=== PATIENT | male | born 1940 | race Caucasian/White ===

== ENCOUNTER 2017-11-03 06:25 | Day surgery (SDC) | payer MEDICARE, OTHER ==
[~2017-11-03 06:25] MED LIST: Dextrose 5%-0.45% NaCl 1,000 ML IV SCH; Midazolam 1 MG/ML 2 ML SDV ONE; Sodium Chloride 0.9% 10 ML Syringe FLUSH PRN; fentaNYL 100 MCG/2 ML SDV ONE
[2017-11-03] MEDS ORDERED: fentaNYL 100 MCG/2 ML SDV IV ONE ×2 (07:31→07:32)
[2017-11-03] MEDS ORDERED: Midazolam 1 MG/ML 2 ML SDV IV ONE ×3 (07:32→07:33)
[2017-11-03 10:08] VITALS: BP 137/60
--- NOTE | 2017-11-03 13:57 | OR ---
DATE: 11/03/2017 PROCEDURE: Esophagogastroduodenoscopy and multiple pinch biopsies. INSTRUMENT USED: GIF-Q180 Olympus video panendoscope. PREMEDICATIONS: No oral topical anesthesia used. Fentanyl 100 mcg intravenous, Versed 1.5 mg intravenous. Nasal O2 cannula. The procedure was done under pulse oximetry, BP recording, and itinerant teacher assistant. INDICATION: The patient with persistent heartburn, unexplained, and not responsive to medical measures, on PPI. Esophagogastroduodenoscopy is performed for detection of any active erosive lesions, Longo esophagus and/or malignancy also under consideration, H. pylori status to be determined, endoscopic hemostasis therapy if needed. DESCRIPTION OF PROCEDURE: The scope was passed with ease. Adequate visualization of the esophagus was made from proximal to distal areas. No upper esophageal lesions identified. No distal esophageal stricture. No uphill or downhill esophageal varices. No Shiela-Melchor tear. No evidence of erosive esophagitis by [place] criteria. No esophageal polyp or tumor mass identified. Z-line seen at around 40 cm distal to the oral verge, configuration consistent with grade 1 by ZAP classification. No proximal gastric varices noted. Gastric fundus examination by retroflexion showed no polypoid lesions. No gastric ulcer, malignant mass, or vascular ectasia identified. Duodenal bulb showed no ulcer. Visualized second part of the duodenum was unremarkable. Multiple pinch biopsies were taken from the gastric antrum and proximal body and sent for PyloriTek test for H. pylori, and if negative in an hour, the tissue is to be sent for histopathology. No bleeding was noted from any of the visualized areas at the completion of examination. Photographs were taken of the duodenal bulb, gastric antrum, fundus, and distal esophagus. IMPRESSION: Normal study. The patient tolerated the procedure well. [facility] /[id number]
== END 2017-11-03 09:32 | disposition home or self-care (01) ==
LOC: DL.ENDO 06:25
PROVIDERS: ATTEND Internal Medicine Gastroenterology
DX: R12 Heartburn (principal); K31.9 Disease of stomach and duodenum, unspecified; K31.89 Other diseases of stomach and duodenum; E11.9 Type 2 diabetes mellitus without complications; E66.09 Other obesity due to excess calories; I10 Essential (primary) hypertension; J44.9 Chronic obstructive pulmonary disease, unspecified; G47.33 Obstructive sleep apnea (adult) (pediatric); I25.10 Atherosclerotic heart disease of native coronary artery without angina pectoris; E78.5 Hyperlipidemia, unspecified; I27.20 Pulmonary hypertension, unspecified; Z87.891 Personal history of nicotine dependence; Z79.82 Long term (current) use of aspirin; Z88.5 Allergy status to narcotic agent; Z91.048 Other nonmedicinal substance allergy status
CPT/HCPCS: 43239; 87077; J7042; J2250; J3010

== ENCOUNTER → 2018-11-20 | Outpatient (CLI) | payer MEDICARE, OTHER | LOC: DL.US 10:44 | PROVIDERS: ATTEND Physician Assistant Medical | DX: I08.3 Combined rheumatic disorders of mitral, aortic and tricuspid valves (principal); I25.10 Atherosclerotic heart disease of native coronary artery without angina pectoris | CPT/HCPCS: 93306 ==

== ENCOUNTER 2019-12-18 13:45 | Emergency (ER) | payer MEDICARE, OTHER ==
[2019-12-18] MEDS ORDERED: Adenosine 6 MG/2 ML SDV IVPUSH ONE (13:55)
[2019-12-18 13:57] VITALS: BP 76/47; PULSE 166
--- NOTE | 2019-12-18 14:08 | CR ---
PROCEDURE INFORMATION: Exam: XR Chest, 1 View Exam date and time: 12/18/2019 2:02 PM Age: 79 years old Clinical indication: Chest pain TECHNIQUE: Imaging protocol: XR of the chest Views: 1 view. COMPARISON: CT Chest wo Cont 04/16/2016 6:27 PM FINDINGS: Lungs: The lungs are hyperinflated, consistent with underlying small airways disease. Nonspecific bibasilar consolidation is present, consistent with atelectasis, edema, or pneumonia. livestock commission agent overlies the left lung apex. Pleural space: Trace bilateral pleural effusions. There is no evidence of pneumothorax. Heart/Mediastinum: Unremarkable. No cardiomegaly. Bones/joints: The thoracic spine demonstrates mild degenerative changes at multiple levels. Soft tissues: The vasculature demonstrates diffuse mild atherosclerotic calcification. IMPRESSION: 1. The lungs are hyperinflated, consistent with underlying small airways disease. 2. Nonspecific bibasilar consolidation is present, consistent with atelectasis, edema, or pneumonia. 3. Trace bilateral pleural effusions.
[2019-12-18 14:42] LABS: CHLORIDE,CL 99 mmol/L (98-107); SODIUM,NA 140 mmol/L (136-145)
--- NOTE | 2019-12-18 15:57 | EDM.PDOC ---
Scribed by Katie Holloway 12/18/19 1530 for Ángel Faulkner NP ED HPI GENERAL MEDICAL PROBLEM - General Chief Complaint: Cardiovascular Problem Stated Complaint: AMB/CHEST PAIN Time Seen by Provider: 12/18/19 13:50 Source of Information: Reports: Patient, EMS, EMS Notes Reviewed, RN, RN Notes Reviewed History Limitations: Reports: No Limitations - History of Present Illness INITIAL COMMENTS - FREE TEXT/NARRATIVE: Patient arrives to ER by [facility] with a history of COPD chronic renal insufficiency, diabetes type II, hypertension, carotid stenosis, hyperlipidemia, CAD and inguinal hernia. He presents to the ER with complaints of chest pain. Patient reports he was painting at home, when chest pain began with radiating down the left arm. It was excruciating as an 8/10 but relieved to a 4/10 after 4 baby aspirin. He denies history of an MO. He reports mild shortness of breath. Onset: Today Duration: Constant Location: Reports: Chest Quality: Reports: Ache Severity: Severe Improves with: Reports: None Worsens with: Reports: None Associated Symptoms: Reports: No Other Symptoms Chest Pain Score (Numeric/FACES): 7 - Related Data Allergies Allergy/AdvReac Type Severity Reaction Status Date / Time iodine Allergy Hives Verified 12/18/19 14:21 morphine Allergy Hives Verified 12/18/19 14:21 iv dye Allergy Hives Uncoded 01/21/19 07:40 Home Meds: Home Meds Acetaminophen [Pain & Fever] 325 mg PO ASDIRECTED PRN 07/20/13 [History] Albuterol [Ventolin HFA] 1 - 2 puff INH Q4H PRN 07/20/13 [History] Aspirin [Adult Low Dose Aspirin EC] 81 mg PO DAILY 07/20/13 [History] Furosemide [Lasix] 20 mg PO DAILY 07/20/13 [History] Nitroglycerin [Nitrostat] 0.4 mg SL ASDIRECTED PRN 07/20/13 [History] Potassium Chloride 10 meq PO DAILY 07/20/13 [History] Simvastatin [Zocor] 20 mg PO BEDTIME 07/20/13 [History] Tiotropium [Spiriva] 18 mcg INH DAILY 07/20/13 [History] hydroCHLOROthiazide [Hydrochlorothiazide] 25 mg PO DAILY 07/20/13 [History] lisinopriL [Prinivil] 40 mg PO DAILY 07/20/13 [History] metFORMIN HCl [Glucophage] 500 mg PO PCBED 07/20/13 [History] Budesonide [Pulmicort] 0.5 mg NEB BID 10/28/16 [History] Formoterol [Perforomist] 20 mcg NEB BID 10/28/16 [History] Metoprolol Succinate [Toprol XL] 100 mg PO DAILY 10/28/16 [History] Roflumilast [Daliresp] 500 mcg PO ASDIRECTED PRN 10/28/16 [History] Clopidogrel Bisulfate [Clopidogrel] 75 mg PO DAILY 10/29/16 [History] amLODIPine Besylate [Amlodipine Besylate] 5 mg PO DAILY 01/19/19 [History] Past Medical History HEENT History: Reports: Allergic Rhinitis, Impaired Vision, Other (See Below) Other HEENT History: WEARS CORRECTIVE LENS. HEARING AIDES BILAT. WEARS UPPER PARTIAL Cardiovascular History: Reports: CAD, High Cholesterol, Hypertension, Pulmonary Hypertension, Other (See Below) Other Cardiovascular History: Moderate aortic insufficiency. Mild to moderate mitral regurgitation. Hx of carotid stenosis Respiratory History: Reports: COPD, Pneumonia, Recurrent, Sleep Apnea, SOB, Other (See Below) Other Respiratory History: Pulmonary hypertension. Sleep related hypoxia Gastrointestinal History: Reports: GERD Genitourinary History: Reports: Prostate Disorder Musculoskeletal History: Reports: Osteoarthritis, Other (See Below) Other Musculoskeletal History: spondylosis of lumbosacral region without myelopathy or radiculopathy. Neurological History: Reports: None Psychiatric History: Reports: None Endocrine/Metabolic History: Reports: Diabetes, Type II, Obesity/BMI 30+ Hematologic History: Reports: None Immunologic History: Reports: None Oncologic (Cancer) History: Reports: Prostate, Other (See Below) Other Oncologic History: skin cancer Dermatologic History: Reports: Eczema, Other (See Below) Other Dermatologic History: actinic keratosis - Infectious Disease History Infectious Disease History: Reports: Chicken Pox, Measles, Mumps Other Infectious Disease History: PATIENT DOES NOT RECALL INFECTIOUS DISEASE HX - Past Surgical History Head Surgeries/Procedures: Reports: None HEENT Surgical History: Reports: Cataract Surgery, Oral Surgery, Tonsillectomy, Other (See Below) Other HEENT Surgeries/Procedures: Ectropion repair bilaterally Cardiovascular Surgical History: Reports: AAA Repair, Carotid Stents, Coronary Artery Stent Respiratory Surgical History: Reports: None GI Surgical History: Reports: Hernia, Inguinal Male Surgical History: Reports: Prostatectomy Endocrine Surgical History: Reports: None Neurological Surgical History: Reports: None Musculoskeletal Surgical History: Reports: Arthroscopic Knee Other Musculoskeletal Surgeries/Procedures:: RIGHT ARTHROSCOPIC KNEE Oncologic Surgical History: Reports: None Dermatological Surgical History: Reports: Skin Biopsy - History Comment History Comment: Please see attached record from [facility] from 04-15-16. Social & Family History - Family History Family Medical History: Noncontributory - Caffeine Use Caffeine Use: Reports: Coffee Other Caffeine Use: AVERAGE OF 2-3 8OZ CUPS OF COFFEE DAILY ED ROS GENERAL - Review of Systems Review Of Systems: See Below Constitutional: Reports: Diaphoresis HEENT: Reports: No Symptoms Respiratory: Reports: Shortness of Breath Cardiovascular: Reports: Chest Pain Endocrine: Reports: No Symptoms GI/Abdominal: Reports: Distension, Other (abdominal hernia) : Reports: No Symptoms Musculoskeletal: Reports: No Symptoms Skin: Reports: No Symptoms Neurological: Reports: No Symptoms Psychiatric: Reports: Anxiety Hematologic/Lymphatic: Reports: No Symptoms Immunologic: Reports: No Symptoms ED EXAM, GENERAL - Physical Exam Exam: See Below Exam Limited By: No Limitations General Appearance: Alert, Anxious, Moderate Distress Eye Exam: Bilateral Eye: PERRL Ears: Normal External Exam, Normal Canal, Hearing Grossly Normal, Normal TMs Nose: Normal Inspection, Normal Mucosa, No Blood Throat/Mouth: Normal Inspection, Normal Lips, Normal Teeth, Normal Gums, Normal Oropharynx, Normal Voice, No Airway Compromise Head: Atraumatic, Normocephalic Neck: Normal Inspection, Supple, Non-Tender, Full Range of Motion Respiratory/Chest: Decreased Breath Sounds (bilaterally). No: Crackles, Rales, Rhonchi, Wheezing Cardiovascular: Tachycardia (regular) Peripheral Pulses: 3+: Posterior Tibial (L), Posterior Tibial (R), Dorsalis Pedis (L), Dorsalis Pedis (R) GI/Abdominal: Distended (/protruded. ) Back Exam: Normal Inspection Extremities: Normal Inspection, Normal Capillary Refill Neurological: Alert, Oriented, CN II-XII Intact Psychiatric: Normal Affect, Anxious Skin Exam: Warm, Dry, Intact, Normal Color, No Rash Lymphatic: No Adenopathy Course - Vital Signs Last Recorded V/S: Last Vital Signs Temp 98.1 F 12/18/19 13:45 Pulse 166 H 12/18/19 13:45 Resp 24 H 12/18/19 13:45 BP 76/47 L 12/18/19 13:45 Pulse Ox 100 12/18/19 13:54 - Orders/Labs/Meds Orders: Active Orders 24 hr Category Date Time Status Cardiac Monitoring [RC] . DIRECTED Care 12/18/19 13:54 Active EKG Documentation Completion [RC] STAT Care 12/18/19 13:55 Active Oxygen Therapy [RC] PRN Care 12/18/19 13:54 Active Labs: Laboratory Tests 12/18/19 12/18/19 12/18/19 Range/Units 14:05 14:05 14:05 WBC 5.3 (5.0-10.0) 10^3/uL RBC 4.93 (4.6-6.2) 10^6/uL Hgb 15.5 D (14.0-18.0) g/dL Hct 45.8 (40.0-54.0) % MCV 92.9 D (80-100) fL MCH 31.4 (27.0-34.0) pg MCHC 33.8 (33.0-35.0) g/dL Plt Count 219 (150-450) 10^3/uL Neut % (Auto) 66.8 (42.2-75.2) % Lymph % (Auto) 22.1 (20.5-50.1) % [place] % (Auto) 8.4 H (2-8) % Eos % (Auto) 2.1 (1.0-3.0) % Baso % (Auto) 0.6 (0.0-1.0) % PT 10.4 (9.0-12.0) SEC INR 1.1 (0.9-1.2) D-Dimer, Quantitative 1780 H (0-400) ng/mL Sodium 140 (136-145) mmol/L Potassium 4.0 (3.5-5.1) mmol/L Chloride 99 (98-107) mmol/L Carbon Dioxide 31 (21-32) mmol/L Anion Gap 14.0 H (7-13) mEq/L BUN 33 H (7-18) mg/dL Creatinine 1.56 H (0.70-1.30) mg/dL Est Cr Clr Drug Dosing 19.81 mL/min Estimated GFR (MDRD) 43 BUN/Creatinine Ratio 21.2 (No establ ref range) Glucose 123 H (74-99) mg/dL Calcium 9.5 (8.5-10.1) mg/dL Total Bilirubin 0.5 (0.2-1.0) mg/dL AST 33 (15-37) U/L ALT 37 (16-63) U/L Alkaline Phosphatase 97 (46-116) U/L Troponin I < 0.017 (0.000-0.056) ng/mL B-Natriuretic Peptide 126 H (0-100) pg/ml Total Protein 7.0 (6.4-8.2) g/dL Albumin 3.8 (3.4-5.0) g/dL Globulin 3.2 Albumin/Globulin Ratio 1.2 Meds: Medications Discontinued Medications Generic Name Dose Route Start Last Admin Trade Name Freq PRN Reason Stop Dose Admin Adenosine 6 mg 12/18/19 13:55 12/18/19 13:50 Adenocard IVPUSH 12/18/19 13:56 6 mg NOW ONE Administration - Radiology Interpretation Free Text/Narrative:: Chest x-ray: The lungs are hyperinflated, consistent with underlying small airways disease. Nonspecific bibasilar consolidation is present, consistent with atelectasis, edema, or pneumonia. Trace bilateral pleural effusions. See rad report. - Re-Assessments/Exams Free Text/Narrative Re-Assessment/Exam: 12/18/19 15:35: In the ER, patient heart rate( EKG read ST) was in the 160's and BP was 64/40. Patient received Adenosine with a NS bolus and converted back to sinus rhythm. Lab reports reviewed with patient. Consulted [facility] in [place] and Dr. Garcia accepted the patient in transfer. Patient in agreement to plan. Departure - Departure Time of Disposition: 15:56 Disposition: DC/Tfer to Acute Hospital 02 Reason for Transfer *Q: Primary PCI Indicated Condition: Fair Clinical Impression: Tachycardia with greater than 160 beats per minute, D-dimer, elevated Chronic renal insufficiency Qualifiers: Chronic kidney disease stage: unspecified stage Qualified Code(s): N18.9 - Chronic kidney disease, unspecified COPD (chronic obstructive pulmonary disease) Qualifiers: COPD type: chronic bronchitis Chronic bronchitis type: mucopurulent Qualified Code(s): J41.1 - Mucopurulent chronic bronchitis Forms: ED Department Discharge, Interfacility Transfer [facility] Sepsis Event Note (ED) - Evaluation Sepsis Screening Result: No Definite Risk - Focused Exam Vital Signs: Vital Signs Temp Pulse Resp BP Pulse Ox Pulse Ox 12/18/19 13:54 100 12/18/19 13:45 98.1 F 166 H 24 H 76/47 L 98 - My Orders Last 24 Hours: My Active Orders 12/18/19 13:54 Cardiac Monitoring [RC] . DIRECTED Oxygen Therapy [RC] PRN 12/18/19 13:55 EKG Documentation Completion [RC] STAT - Assessment/Plan Last 24 Hours: My Active Orders 12/18/19 13:54 Cardiac Monitoring [RC] . DIRECTED Oxygen Therapy [RC] PRN 12/18/19 13:55 EKG Documentation Completion [RC] STAT I have read and agree with the documentation that has been completed regarding this visit. By signing this record, I attest that the documentation was completed in my physical presence and is an accurate record of the encounter.
[2019-12-18] MEDS ORDERED: Adenosine 6 MG/2 ML SDV ONE (16:19)
== END 2019-12-18 16:16 ==
LOC: DL.ED 13:45
DX: J44.9 Chronic obstructive pulmonary disease, unspecified (principal); I12.9 Hypertensive chronic kidney disease with stage 1 through stage 4 chronic kidney disease, or unspecified chronic kidney disease; E11.22 Type 2 diabetes mellitus with diabetic chronic kidney disease; N18.9 Chronic kidney disease, unspecified; R00.0 Tachycardia, unspecified; R79.1 Abnormal coagulation profile; I25.10 Atherosclerotic heart disease of native coronary artery without angina pectoris; E78.00 Pure hypercholesterolemia, unspecified; M19.90 Unspecified osteoarthritis, unspecified site; E66.9 Obesity, unspecified; Z68.27 Body mass index [BMI] 27.0-27.9, adult; Z88.5 Allergy status to narcotic agent; Z88.8 Allergy status to other drugs, medicaments and biological substances; Z91.041 Radiographic dye allergy status; Z79.82 Long term (current) use of aspirin; Z79.02 Long term (current) use of antithrombotics/antiplatelets; Z79.84 Long term (current) use of oral hypoglycemic drugs; Z79.899 Other long term (current) drug therapy; R06.02 Shortness of breath
CPT/HCPCS: 36415; 71045; 80053; 83880; 84484; 85025; 85379; 85610; 93005; 94762; 96374; 99284; 99285; J0153

== ENCOUNTER 2020-03-15 16:39 | Emergency (ER) | payer MEDICARE, OTHER ==
[2020-03-15] MEDS ORDERED: Sodium Chloride 0.9% 10 ML Syringe FLUSH PRN (16:42)
[2020-03-15] MEDS ORDERED: Adenosine 6 MG/2 ML SDV IVPUSH ONE (16:42)
[2020-03-15] MEDS ORDERED: Diltiazem 25 MG/5 ML SDV IVPUSH ONE (16:46)
--- NOTE | 2020-03-15 17:08 | CR ---
PROCEDURE INFORMATION: Exam: XR Chest, 1 View Exam date and time: 03/15/2020 4:53 PM Age: 79 years old Clinical indication: Chest pain; Type not specified; Prior surgery; Surgery type: Pacemaker TECHNIQUE: Imaging protocol: XR of the chest Views: 1 view. COMPARISON: CR Chest 1V Frontal 12/18/2019 2:02 PM FINDINGS: Tubes, catheters and devices: electronic device overlies the left chest. Lungs: Unremarkable. No consolidation. Pleural space: Unremarkable. No pleural effusion. No pneumothorax. Heart/Mediastinum: Unremarkable. No cardiomegaly. Vasculature: Atherosclerosis. Bones/joints: Sternotomy. IMPRESSION: No acute finding.
[2020-03-15 17:28] VITALS: BP 106/51; PULSE 145
[2020-03-15 17:41] LABS: PTT,PARTIAL THROMBOPLSTIN TIME 22.4 SEC (22.0-34.0)
--- NOTE | 2020-03-15 18:53 | EDM.PDOC ---
Scribed by Katie Holloway 03/15/20 [id number] for Jonathan Molina MD ED HPI GENERAL MEDICAL PROBLEM - General Chief Complaint: Chest Pain Stated Complaint: AMBULANCE Time Seen by Provider: 03/15/20 16:40 Source of Information: Reports: Patient, EMS, EMS Notes Reviewed, RN, RN Notes Reviewed History Limitations: Reports: No Limitations - History of Present Illness INITIAL COMMENTS - FREE TEXT/NARRATIVE: Patient arrives to ED by [facility] with onset of chest pain at 1530 hours which lasted 45 minutes. Pt took 2 tablets of Aspirin 325mg and rested, and the pain completely went away. Pain free on arrival. Pt complains only of fast heart rate. Denies lightheadedness, syncope, shortness of breath, or edema. Heart rate is around 145BPM and atrial fib per paramedics. O2 applied at 2L/nc. Pt had CABG in January at [facility]. Onset: Today Duration: Getting Worse Location: Reports: Chest Quality: Reports: Ache Severity: Severe Improves with: Reports: None Worsens with: Reports: None Associated Symptoms: Reports: No Other Symptoms - Related Data Allergies Allergy/AdvReac Type Severity Reaction Status Date / Time iodine Allergy Hives Verified 12/18/19 14:21 morphine Allergy Hives Verified 12/18/19 14:21 iv dye Allergy Hives Uncoded 01/21/19 07:40 Home Meds: Home Meds Acetaminophen [Pain & Fever] 325 mg PO ASDIRECTED PRN 07/20/13 [History] Albuterol [Ventolin HFA] 2 puff INH Q4H PRN 07/20/13 [History] Aspirin [Adult Low Dose Aspirin EC] 81 mg PO DAILY 07/20/13 [History] Furosemide [Lasix] 20 mg PO DAILY 07/20/13 [History] Nitroglycerin [Nitrostat] 0.4 mg SL ASDIRECTED PRN 07/20/13 [History] Potassium Chloride 10 meq PO DAILY 07/20/13 [History] Simvastatin [Zocor] 20 mg PO BEDTIME 07/20/13 [History] Tiotropium [Spiriva] 18 mcg INH DAILY 07/20/13 [History] hydroCHLOROthiazide [Hydrochlorothiazide] 25 mg PO DAILY 07/20/13 [History] metFORMIN HCl [Glucophage] 500 mg PO PCBED 07/20/13 [History] Budesonide [Pulmicort] 0.5 mg NEB BID 10/28/16 [History] Formoterol [Perforomist] 20 mcg NEB BID 10/28/16 [History] Metoprolol Succinate [Toprol XL] 50 mg PO DAILY 10/28/16 [History] Roflumilast [Daliresp] 500 mcg PO DAILY 10/28/16 [History] Clopidogrel Bisulfate [Clopidogrel] 75 mg PO DAILY 10/29/16 [History] amLODIPine Besylate [Amlodipine Besylate] 5 mg PO DAILY 01/19/19 [History] Apixaban [Eliquis] 5 mg PO BID 03/15/20 [History] Bumetanide 1 mg PO BID 03/15/20 [History] Gabapentin [Neurontin] 100 mg PO DAILY 03/15/20 [History] lisinopriL [Lisinopril] 10 mg PO DAILY 03/15/20 [History] Past Medical History HEENT History: Reports: Allergic Rhinitis, Impaired Vision, Other (See Below) Other HEENT History: WEARS CORRECTIVE LENS. HEARING AIDES BILAT. WEARS UPPER PARTIAL Cardiovascular History: Reports: CAD, High Cholesterol, Hypertension, Pulmonary Hypertension, Other (See Below) Other Cardiovascular History: Moderate aortic insufficiency. Mild to moderate mitral regurgitation. Hx of carotid stenosis Respiratory History: Reports: COPD, Pneumonia, Recurrent, Sleep Apnea, SOB, Other (See Below) Other Respiratory History: Pulmonary hypertension. Sleep related hypoxia Gastrointestinal History: Reports: GERD Genitourinary History: Reports: Prostate Disorder Musculoskeletal History: Reports: Osteoarthritis, Other (See Below) Other Musculoskeletal History: spondylosis of lumbosacral region without myelopathy or radiculopathy. Neurological History: Reports: None Psychiatric History: Reports: None Endocrine/Metabolic History: Reports: Diabetes, Type II, Obesity/BMI 30+ Hematologic History: Reports: None Immunologic History: Reports: None Oncologic (Cancer) History: Reports: Prostate, Other (See Below) Other Oncologic History: skin cancer Dermatologic History: Reports: Eczema, Other (See Below) Other Dermatologic History: actinic keratosis - Infectious Disease History Infectious Disease History: Reports: Chicken Pox, Measles, Mumps Other Infectious Disease History: PATIENT DOES NOT RECALL INFECTIOUS DISEASE HX - Past Surgical History Head Surgeries/Procedures: Reports: None HEENT Surgical History: Reports: Cataract Surgery, Oral Surgery, Tonsillectomy, Other (See Below) Other HEENT Surgeries/Procedures: Ectropion repair bilaterally Cardiovascular Surgical History: Reports: AAA Repair, Carotid Stents, Coronary Artery Stent Respiratory Surgical History: Reports: None GI Surgical History: Reports: Hernia, Inguinal Male Surgical History: Reports: Prostatectomy Endocrine Surgical History: Reports: None Neurological Surgical History: Reports: None Musculoskeletal Surgical History: Reports: Arthroscopic Knee Other Musculoskeletal Surgeries/Procedures:: RIGHT ARTHROSCOPIC KNEE Oncologic Surgical History: Reports: None Dermatological Surgical History: Reports: Skin Biopsy - History Comment History Comment: Please see attached record from [facility] from 04-15-16. Social & Family History - Family History Family Medical History: Noncontributory - Caffeine Use Caffeine Use: Reports: Coffee Other Caffeine Use: AVERAGE OF 2-3 8OZ CUPS OF COFFEE DAILY ED ROS GENERAL - Review of Systems Review Of Systems: Comprehensive ROS is negative, except as noted in HPI. ED EXAM, GENERAL - Physical Exam Exam: See Below Exam Limited By: No Limitations General Appearance: Alert, WD/WN, No Apparent Distress, Anxious Eye Exam: Bilateral Eye: Normal Inspection Nose: Normal Inspection, Normal Mucosa, No Blood Throat/Mouth: Normal Inspection, Normal Lips, Normal Voice, No Airway Compromise Head: Atraumatic, Normocephalic Neck: Normal Inspection, Supple, Non-Tender, Full Range of Motion Respiratory/Chest: No Respiratory Distress, Lungs Clear, Normal Breath Sounds, No Accessory Muscle Use, Chest Non-Tender Cardiovascular: Tachycardia, Irregularly Irregular GI/Abdominal: Normal Bowel Sounds, Soft, Non-Tender Back Exam: Normal Inspection Extremities: Normal Inspection, Normal Range of Motion, Non-Tender, Normal Capillary Refill, No Pedal Edema Neurological: Alert, Oriented, No Motor/Sensory Deficits Psychiatric: Normal Mood Skin Exam: Warm, Dry, Intact, Normal Color, No Rash EKG INTERPRETATION EKG Date: 03/15/20 Time: 16:40 Rhythm: A-Fib Rate (Beats/Min): 141 [place]: Normal P-Wave: Present QRS: Normal ST-T: Other (borderline T abnormalities, inferior leads.) QT: Normal Comparison: Change From Previous EKG EKG Interpretation Comments: EKG #2 at 1700 HOURS. Rate 71. Sinus rhythm. Atrial premature complexes. Course - Vital Signs Last Recorded V/S: Last Vital Signs Temp 98.8 F 03/15/20 16:35 Pulse 145 H 03/15/20 16:35 Resp 18 03/15/20 16:35 BP 106/51 L 03/15/20 16:35 Pulse Ox 96 03/15/20 16:35 - Orders/Labs/Meds Orders: Active Orders 24 hr Category Date Time Status EKG 12 Lead [EKG Documentation Completion] [RC] STAT Care 03/15/20 16:41 Active Peripheral IV Care [RC] . DIRECTED Care 03/15/20 16:42 Active Sodium Chloride 0.9% [Saline Flush] Med 03/15/20 16:42 Active 10 ml FLUSH ASDIRECTED PRN Peripheral IV Insertion Adult [OM.PC] Stat Oth 03/15/20 16:41 Ordered Medication Orders Sodium Chloride (Saline Flush) 10 ml FLUSH ASDIRECTED PRN PRN Reason: Keep Vein Open Labs: Laboratory Tests 03/15/20 03/15/20 03/15/20 Range/Units 17:19 17:19 17:19 WBC 7.4 (5.0-10.0) 10^3/uL RBC 3.99 L (4.6-6.2) 10^6/uL Hgb 11.6 L D (14.0-18.0) g/dL Hct 37.6 L (40.0-54.0) % MCV 94.2 (80-100) fL MCH 29.1 (27.0-34.0) pg MCHC 30.9 L (33.0-35.0) g/dL Plt Count 279 (150-450) 10^3/uL Neut % (Auto) 73.1 (42.2-75.2) % Lymph % (Auto) 13.6 L (20.5-50.1) % [place] % (Auto) 11.2 H (2-8) % Eos % (Auto) 1.6 (1.0-3.0) % Baso % (Auto) 0.5 (0.0-1.0) % PT 11.5 (9.0-12.0) SEC INR 1.2 (0.9-1.2) APTT 22.4 (22.0-34.0) SEC Sodium 145 (136-145) mmol/L Potassium 4.0 (3.5-5.1) mmol/L Chloride 107 (98-107) mmol/L Carbon Dioxide 32 (21-32) mmol/L Anion Gap 10.0 (7-13) mEq/L BUN 24 H (7-18) mg/dL Creatinine 1.65 H (0.70-1.30) mg/dL Est Cr Clr Drug Dosing 36.30 mL/min Estimated GFR (MDRD) 40 BUN/Creatinine Ratio 14.5 (No establ ref range) Glucose 129 H (74-99) mg/dL Calcium 9.0 (8.5-10.1) mg/dL Total Bilirubin 0.3 (0.2-1.0) mg/dL AST 17 (15-37) U/L ALT 18 (16-63) U/L Alkaline Phosphatase 102 (46-116) U/L Troponin I 0.076 H* (0.000-0.056) ng/mL B-Natriuretic Peptide 180 H (0-100) pg/ml Total Protein 6.3 L (6.4-8.2) g/dL Albumin 3.3 L (3.4-5.0) g/dL Globulin 3.0 Albumin/Globulin Ratio 1.10 Meds: Medications Generic Name Dose Route Start Last Admin Trade Name Freq PRN Reason Stop Dose Admin Sodium Chloride 10 ml 03/15/20 16:42 Saline Flush FLUSH ASDIRECTED PRN Keep Vein Open Discontinued Medications Generic Name Dose Route Start Last Admin Trade Name Freq PRN Reason Stop Dose Admin Adenosine 6 mg 03/15/20 16:42 03/15/20 17:15 Adenocard IVPUSH 03/15/20 16:43 Not Given NOW ONE Diltiazem HCl 20 mg 03/15/20 16:46 03/15/20 16:56 Diltiazem IVPUSH 03/15/20 16:47 10 mg ONETIME ONE Administration - Radiology Interpretation Free Text/Narrative:: Chest x-ray: No acute findings. See rad report. Departure - Departure Time of Disposition: 18:48 Disposition: Home, Self-Care 01 Condition: Good Clinical Impression: New onset atrial fibrillation, Atrial fibrillation with rapid ventricular response, Elevated troponin Instructions: Nonspecific Chest Pain, Adult, [id number], Atrial Fibrillation, [id number]-[id number] Forms: ED Department Discharge Additional Instructions: Take all of your medications exactly as prescribed. Call [facility] tomorrow morning (03/15/20) to arrange a follow up appointment for evaluation of ATRIAL FIBRILLATION with rapid ventricular response and chest pain. Call 911 if you develop chest pain, rapid heart rate, or lightheadedness. Sepsis Event Note (ED) - Focused Exam Vital Signs: Vital Signs Temp Pulse Resp BP Pulse Ox 03/15/20 16:35 98.8 F 145 H 18 106/51 L 96 - My Orders Last 24 Hours: My Active Orders 03/15/20 16:41 EKG 12 Lead [EKG Documentation Completion] [RC] STAT Peripheral IV Insertion Adult [OM.PC] Stat 03/15/20 16:42 Peripheral IV Care [RC] . DIRECTED Sodium Chloride 0.9% [Saline Flush] 10 ml FLUSH ASDIRECTED PRN - Assessment/Plan Last 24 Hours: My Active Orders 03/15/20 16:41 EKG 12 Lead [EKG Documentation Completion] [RC] STAT Peripheral IV Insertion Adult [OM.PC] Stat 03/15/20 16:42 Peripheral IV Care [RC] . DIRECTED Sodium Chloride 0.9% [Saline Flush] 10 ml FLUSH ASDIRECTED PRN I have read and agree with the documentation that has been completed regarding this visit. By signing this record, I attest that the documentation was completed in my physical presence and is an accurate record of the encounter.
== END 2020-03-15 19:08 | disposition home or self-care (01) ==
LOC: DL.ED 16:39
DX: I48.91 Unspecified atrial fibrillation (principal); R79.89 Other specified abnormal findings of blood chemistry; I25.10 Atherosclerotic heart disease of native coronary artery without angina pectoris; E78.00 Pure hypercholesterolemia, unspecified; I10 Essential (primary) hypertension; J44.9 Chronic obstructive pulmonary disease, unspecified; M19.90 Unspecified osteoarthritis, unspecified site; E11.9 Type 2 diabetes mellitus without complications; E66.9 Obesity, unspecified; Z68.26 Body mass index [BMI] 26.0-26.9, adult; Z91.09 Other allergy status, other than to drugs and biological substances; Z88.5 Allergy status to narcotic agent; Z91.041 Radiographic dye allergy status; Z79.82 Long term (current) use of aspirin; Z79.01 Long term (current) use of anticoagulants; Z79.84 Long term (current) use of oral hypoglycemic drugs; Z79.02 Long term (current) use of antithrombotics/antiplatelets; Z79.899 Other long term (current) drug therapy
CPT/HCPCS: 36415; 71045; 80053; 83880; 84484; 85025; 85610; 85730; 93005; 96374; 99285; J3490

== ENCOUNTER 2020-06-09 14:44 | Emergency (ER) | payer MEDICARE, OTHER ==
--- NOTE | 2020-06-09 14:59 | EDM.PDOC ---
ED HPI GENERAL MEDICAL PROBLEM - General Stated Complaint: AMBULANCE Time Seen by Provider: 06/09/20 14:52 Source of Information: Reports: Patient, EMS, Old Records, RN, RN Notes Reviewed History Limitations: Reports: No Limitations - History of Present Illness INITIAL COMMENTS - FREE TEXT/NARRATIVE: Patient presents to the ED via EMS with complaints of shortness of breath and dizziness. EMS noted he was in a tachyarrhythmia via their monitor, up to the 180s. The patient reports a history of a CABG x1 in January 2020 and has since developed paroxysmal tachyarrhythmia. He states he is scheduled for a cardiac ablation on 06/12/2020 at [facility] in [place]. He states he has experienced periodic dizziness and shortness of breath more frequently in the past few days which usually subsides within 20-30 seconds; this most recent bout caused him concern, so he called EMS. He denies fever, shaking chills, recent illness, cough, sore throat, dyspepsia, nausea, vomiting, or diaphoresis. He does attest to intermittent left, lateral chest pain and intermittent diarrhea. He does not correlate the chest pain with the shortness of breath. He attest to a history of tobacco use with a quit date of June 1986. He denies alcohol or recreational drug use. - Related Data Allergies Allergy/AdvReac Type Severity Reaction Status Date / Time iodine Allergy Hives Verified 06/09/20 15:08 morphine Allergy Hives Verified 06/09/20 15:08 iv dye Allergy Hives Uncoded 01/21/19 07:40 Home Meds: Home Meds Acetaminophen [Pain & Fever] 325 mg PO ASDIRECTED PRN 07/20/13 [History] Albuterol [Ventolin HFA] 2 puff INH Q4H PRN 07/20/13 [History] Aspirin [Adult Low Dose Aspirin EC] 81 mg PO DAILY 07/20/13 [History] Furosemide [Lasix] 20 mg PO DAILY 07/20/13 [History] Nitroglycerin [Nitrostat] 0.4 mg SL ASDIRECTED PRN 07/20/13 [History] Potassium Chloride 10 meq PO DAILY 07/20/13 [History] Simvastatin [Zocor] 20 mg PO BEDTIME 07/20/13 [History] Tiotropium [Spiriva] 18 mcg INH DAILY 07/20/13 [History] hydroCHLOROthiazide [Hydrochlorothiazide] 25 mg PO DAILY 07/20/13 [History] metFORMIN HCl [Glucophage] 500 mg PO PCBED 07/20/13 [History] Budesonide [Pulmicort] 0.5 mg NEB BID 10/28/16 [History] Formoterol [Perforomist] 20 mcg NEB BID 10/28/16 [History] Metoprolol Succinate [Toprol XL] 50 mg PO DAILY 10/28/16 [History] Roflumilast [Daliresp] 500 mcg PO DAILY 10/28/16 [History] Clopidogrel Bisulfate [Clopidogrel] 75 mg PO DAILY 10/29/16 [History] amLODIPine Besylate [Amlodipine Besylate] 5 mg PO DAILY 01/19/19 [History] Apixaban [Eliquis] 5 mg PO BID 03/15/20 [History] Bumetanide 1 mg PO BID 03/15/20 [History] Gabapentin [Neurontin] 100 mg PO DAILY 03/15/20 [History] lisinopriL [Lisinopril] 10 mg PO DAILY 03/15/20 [History] Past Medical History HEENT History: Reports: Allergic Rhinitis, Impaired Vision, Other (See Below) Other HEENT History: WEARS CORRECTIVE LENS. HEARING AIDES BILAT. WEARS UPPER PARTIAL Cardiovascular History: Reports: CAD, High Cholesterol, Hypertension, Pulmonary Hypertension, Other (See Below) Other Cardiovascular History: Moderate aortic insufficiency. Mild to moderate mitral regurgitation. Hx of carotid stenosis Respiratory History: Reports: COPD, Pneumonia, Recurrent, Sleep Apnea, SOB, Other (See Below) Other Respiratory History: Pulmonary hypertension. Sleep related hypoxia Gastrointestinal History: Reports: GERD Genitourinary History: Reports: Prostate Disorder Musculoskeletal History: Reports: Osteoarthritis, Other (See Below) Other Musculoskeletal History: spondylosis of lumbosacral region without myelopathy or radiculopathy. Neurological History: Reports: None Psychiatric History: Reports: None Endocrine/Metabolic History: Reports: Diabetes, Type II, Obesity/BMI 30+ Hematologic History: Reports: None Immunologic History: Reports: None Oncologic (Cancer) History: Reports: Prostate, Other (See Below) Other Oncologic History: skin cancer Dermatologic History: Reports: Eczema, Other (See Below) Other Dermatologic History: actinic keratosis - Infectious Disease History Infectious Disease History: Reports: Chicken Pox, Measles, Mumps Other Infectious Disease History: PATIENT DOES NOT RECALL INFECTIOUS DISEASE HX - Past Surgical History Head Surgeries/Procedures: Reports: None HEENT Surgical History: Reports: Cataract Surgery, Oral Surgery, Tonsillectomy, Other (See Below) Other HEENT Surgeries/Procedures: Ectropion repair bilaterally Cardiovascular Surgical History: Reports: AAA Repair, Carotid Stents, Coronary Artery Stent Respiratory Surgical History: Reports: None GI Surgical History: Reports: Hernia, Inguinal Male Surgical History: Reports: Prostatectomy Endocrine Surgical History: Reports: None Neurological Surgical History: Reports: None Musculoskeletal Surgical History: Reports: Arthroscopic Knee Other Musculoskeletal Surgeries/Procedures:: RIGHT ARTHROSCOPIC KNEE Oncologic Surgical History: Reports: None Dermatological Surgical History: Reports: Skin Biopsy - History Comment History Comment: Please see attached record [facility] 04[facility]16. Social & Family History - Family History Family Medical History: No Pertinent Family History - Caffeine Use Caffeine Use: Reports: Coffee Other Caffeine Use: AVERAGE OF 2-3 8OZ CUPS OF COFFEE DAILY ED ROS GENERAL - Review of Systems Review Of Systems: Comprehensive ROS is negative, except as noted in HPI. ED EXAM, GENERAL - Physical Exam Exam: See Below Exam Limited By: No Limitations General Appearance: Alert, WD/WN, No Apparent Distress Eye Exam: Bilateral Eye: EOMI, Normal Inspection, PERRL Ears: Normal External Exam, Hearing Loss (Hearing aid in left ear) Throat/Mouth: Normal Lips, Normal Voice, No Airway Compromise. No: Normal Oropharynx (Dry mucous membranes) Head: Atraumatic, Normocephalic Neck: Normal Inspection, Supple, Non-Tender, Full Range of Motion. No: Lymphadenopathy (L), Lymphadenopathy (R) Respiratory/Chest: Chest Non-Tender, Rhonchi (To left lower lobe), Wheezing (Expiratory to bilateral lobes) Cardiovascular: Normal Peripheral Pulses, No Gallop, No JVD, No Murmur, No Rub, Tachycardia Peripheral Pulses: 1+: Posterior Tibial (L), Posterior Tibial (R), Dorsalis Pedis (L), Dorsalis Pedis (R), 2+: Radial (L), Radial (R) GI/Abdominal: Normal Bowel Sounds, Soft, Non-Tender, Pelvis Stable, Hernia (Male) Exam: Deferred Rectal (Males) Exam: Deferred Back Exam: Normal Inspection, Full Range of Motion Extremities: Non-Tender, Pedal Edema (+1 pitting to RLE) Neurological: Alert, Oriented, CN II-XII Intact, Normal Gait, No Motor/Sensory Deficits Psychiatric: Normal Affect, Normal Mood Skin Exam: Dry, Intact, Erythema (Flushed to face) #1 Interpretation EKG Date: 06/09/20 Time: 14:56 Rhythm: Other (Sinus tachycardia) Rate (Beats/Min): 101 [place]: LAD-Left [place] Deviation P-Wave: Present QRS: Normal ST-T: Elevated (Slight elevation in V2 and V3) QT: Normal Comparison: Change From Previous EKG (T-wave invesion in V2 is new compared to 03/2020 EKG) EKG Interpretation Comments: ST; No evidence of acute ischemia Course - Vital Signs Last Recorded V/S: Last Vital Signs Temp 97.6 F 06/09/20 15:02 Pulse 101 H 06/09/20 15:02 Resp 21 H 06/09/20 15:02 BP 159/61 H 06/09/20 15:02 Pulse Ox 98 06/09/20 15:02 - Orders/Labs/Meds Orders: Active Orders 24 hr Category Date Time Status EKG Documentation Completion [RC] STAT Care 06/09/20 14:50 Active UA RFX DESHAUN AND CULT IF INDIC [URIN] Stat Lab 06/09/20 14:50 Ordered Labs: Laboratory Tests 06/09/20 06/09/20 06/09/20 Range/Units 15:04 15:04 15:04 WBC 7.7 (5.0-10.0) 10^3/uL RBC 4.56 L (4.6-6.2) 10^6/uL Hgb 12.5 L (14.0-18.0) g/dL Hct 39.0 L (40.0-54.0) % MCV 85.5 D (80-100) fL MCH 27.4 (27.0-34.0) pg MCHC 32.1 L (33.0-35.0) g/dL Plt Count 259 (150-450) 10^3/uL Neut % (Auto) 71.0 (42.2-75.2) % Lymph % (Auto) 16.7 L (20.5-50.1) % [place] % (Auto) 10.2 H (2-8) % Eos % (Auto) 1.6 (1.0-3.0) % Baso % (Auto) 0.5 (0.0-1.0) % PT 11.1 (9.0-12.0) SEC INR 1.2 (0.9-1.2) APTT 23.3 (22.0-34.0) SEC Sodium 137 (136-145) mmol/L Potassium 3.3 L (3.5-5.1) mmol/L Chloride 101 (98-107) mmol/L Carbon Dioxide 27 (21-32) mmol/L Anion Gap 12.3 (7-13) mEq/L BUN 24 H (7-18) mg/dL Creatinine 1.28 (0.70-1.30) mg/dL Est Cr Clr Drug Dosing 32.01 mL/min Estimated GFR (MDRD) 54 BUN/Creatinine Ratio 18.8 (No establ ref range) Glucose 191 H (74-99) mg/dL Calcium 9.0 (8.5-10.1) mg/dL Magnesium 1.8 (1.8-2.4) mg/dL Total Bilirubin 0.4 (0.2-1.0) mg/dL AST 18 (15-37) U/L ALT 23 (16-63) U/L Alkaline Phosphatase 108 (46-116) U/L Troponin I 0.029 (0.000-0.056) ng/mL Total Protein 6.6 (6.4-8.2) g/dL Albumin 3.6 (3.4-5.0) g/dL Globulin 3.0 Albumin/Globulin Ratio 1.2 - Re-Assessments/Exams Free Text/Narrative Re-Assessment/Exam: 06/09/20 Cardiac workup negative for acute processes, including CT from 06/07/2020. Rn Transitional Care spoke with nurse from Dr. Springer's office concerning medication management pre-operatively. Nurse confirmed patient is to be off of beta dana, if he can tolerate it. Rn Transitional Care discussed this conversation with patient and instructed him on various vagal maneuvers when his tachyarrhythmia occurs. Patient verbalized understanding and agreement with the plan of care. Departure - Departure Time of Disposition: 16:22 Disposition: Home, Self-Care 01 Condition: Good Clinical Impression: Sinus tachycardia by electrocardiogram, Shortness of breath, Dizziness Instructions: Sinus Tachycardia Additional Instructions: 1.) Continue your medication management, per Cardiology instructions. 2.) If you feel your heart beating too quickly, attempt to drink a glass of cold water, cough, or blow through a straw. If you are unable to bring your heart rate down after several minutes, return to the emergency department. Sepsis Event Note (ED) - Focused Exam Vital Signs: Vital Signs Temp Pulse Resp BP Pulse Ox 06/09/20 15:02 97.6 F 101 H 21 H 159/61 H 98 - My Orders Last 24 Hours: My Active Orders 06/09/20 14:50 EKG Documentation Completion [RC] STAT UA RFX DESHAUN AND CULT IF INDIC [URIN] Stat - Assessment/Plan Last 24 Hours: My Active Orders 06/09/20 14:50 EKG Documentation Completion [RC] STAT UA RFX DESHAUN AND CULT IF INDIC [URIN] Stat
[2020-06-09 15:08] VITALS: BP 159/61; PULSE 101
[2020-06-09 15:34] LABS: ANION GAP 12.3 mEq/L (7-13)
[2020-06-09 15:42] LABS: PTT,PARTIAL THROMBOPLSTIN TIME 23.3 SEC (22.0-34.0)
== END 2020-06-09 16:30 | disposition home or self-care (01) ==
LOC: DL.ED 14:44
DX: R00.0 Tachycardia, unspecified (principal); R06.02 Shortness of breath; R42 Dizziness and giddiness; I25.10 Atherosclerotic heart disease of native coronary artery without angina pectoris; E78.00 Pure hypercholesterolemia, unspecified; I10 Essential (primary) hypertension; E11.9 Type 2 diabetes mellitus without complications; E66.9 Obesity, unspecified; M19.90 Unspecified osteoarthritis, unspecified site; J44.9 Chronic obstructive pulmonary disease, unspecified; Z91.048 Other nonmedicinal substance allergy status; Z88.5 Allergy status to narcotic agent; Z91.041 Radiographic dye allergy status; Z79.82 Long term (current) use of aspirin; Z79.84 Long term (current) use of oral hypoglycemic drugs; Z79.02 Long term (current) use of antithrombotics/antiplatelets; Z79.01 Long term (current) use of anticoagulants; Z79.899 Other long term (current) drug therapy
CPT/HCPCS: 36415; 80053; 83735; 84484; 85025; 85610; 85730; 93005; 99285-25

== ENCOUNTER 2022-05-10 16:15 | Emergency (ER) | payer MEDICARE, OTHER ==
[~2022-05-10 16:15] MED LIST changes: -Dextrose 5%-0.45% NaCl 1,000 ML IV SCH; -Midazolam 1 MG/ML 2 ML SDV ONE; -fentaNYL 100 MCG/2 ML SDV ONE
[2022-05-10] MEDS ORDERED: Heparin Sodium 5,000 Units/ML Vial IVPUSH ONE (16:17)
[2022-05-10] MEDS ORDERED: Heparin Sodium/0.45% NaCl 25,000 UNITS/500 ML BAG IV SCH (16:30)
[2022-05-10 16:54] LABS: PTT,PARTIAL THROMBOPLSTIN TIME 21.7 SEC (22.0-34.0)
[2022-05-10 16:58] LABS: ANION GAP 13.5 mEq/L (7-13)
[2022-05-10] MEDS ORDERED: Sodium Chloride 0.9% 1,000 ML IV ONE (21:34)
[2022-05-11 00:18] VITALS: BP 141/60; PULSE 65
== END 2022-05-11 01:08 ==
LOC: DL.ED 16:15
DX: I48.91 Unspecified atrial fibrillation (principal); J44.9 Chronic obstructive pulmonary disease, unspecified; E78.00 Pure hypercholesterolemia, unspecified; I10 Essential (primary) hypertension; E11.9 Type 2 diabetes mellitus without complications; F17.210 Nicotine dependence, cigarettes, uncomplicated; E66.9 Obesity, unspecified; Z68.25 Body mass index [BMI] 25.0-25.9, adult; Z91.041 Radiographic dye allergy status; Z88.6 Allergy status to analgesic agent; Z79.899 Other long term (current) drug therapy; Z79.82 Long term (current) use of aspirin; Z20.822 Contact with and (suspected) exposure to COVID-19
CPT/HCPCS: 36415; 71045; 80053; 83880; 84484; 85025; 85610; 85730; 93005; 96365; 96366; 99285; J1644; J3490; J7030; U0002

== ENCOUNTER 2024-01-04 23:22 | Observation (INO) | payer MEDICARE, OTHER ==
[2024-01-05] MEDS: Sodium Chloride 0.9% 500 ML IV ONE
[2024-01-05 00:03] LABS: BASOPHILS PERCENT AUTO 0.6 % (0.0-1.0); EOSINOPHILS PERCENT AUTO 1.6 % (1.0-3.0); HEMATOCRIT 22.5 % (40.0-54.0); LYMPHOCYTES PERCENT AUTO 18.1 % (20.5-50.1); MEAN CORPUSCULAR HEMOGLOBIN 21.7 pg (27.0-34.0); MEAN CORPUSCULAR HGB CONC 28.9 g/dL (33.0-35.0); NEUTROPHILS PERCENT AUTO 66.7 % (42.2-75.2); PLATELET COUNT,PLT 330 10^3/uL (150-450); WHITE BLOOD CELL COUNT,WBC 7.1 10^3/uL (5.0-10.0)
[2024-01-05 00:16] LABS: ANION GAP 8.3 mEq/L (7-13); CALCIUM 8.8 mg/dL (8.5-10.1); CREATININE 1.7 mg/dL (0.70-1.30); EST CRCL DRUG DOSING (CG) 30.25 mL/min; POTASSIUM,K 3.3 mmol/L (3.5-5.1)
[2024-01-05 00:18] LABS: HEMOGLOBIN 6.5 g/dL (14.0-18.0)
[2024-01-05] MEDS ORDERED: Acetaminophen 325 MG Tab PO PRN ×2 (02:45→08:17)
[2024-01-05] MEDS: Melatonin 3 MG Tab PO SCH (02:55)
[2024-01-05] MEDS: traZODone 50 MG Tab PO SCH (02:55)
[2024-01-05 07:52] VITALS: BP 150/57; PULSE 80
[2024-01-05] MEDS ORDERED: Ondansetron 4 MG Tab.DIS PO PRN (08:01)
[2024-01-05] MEDS ORDERED: oxyCODONE 5 MG Tab PO PRN (08:01)
[2024-01-05] MEDS ORDERED: Sodium Chloride 0.9% 10 ML Syringe FLUSH PRN (08:01)
[2024-01-05] MEDS ORDERED: Nitroglycerin 0.4 MG Tab.SL SL PRN (08:17)
[2024-01-05] MEDS ORDERED: Albuterol 6.7 GM Inhaler INH PRN (08:17)
[2024-01-05 08:47] LABS: BASOPHILS PERCENT AUTO 0.5 % (0.0-1.0); EOSINOPHILS PERCENT AUTO 1.9 % (1.0-3.0); HEMOGLOBIN 8.9 g/dL (14.0-18.0); LYMPHOCYTES PERCENT AUTO 14.8 % (20.5-50.1); MEAN CORPUSCULAR HEMOGLOBIN 22.9 pg (27.0-34.0); MEAN CORPUSCULAR HGB CONC 29.7 g/dL (33.0-35.0); MEAN CORPUSCULAR VOLUME 77.3 fL (80-100); MONOCYTES PERCENT AUTO 11.3 % (2-8); NEUTROPHILS PERCENT AUTO 71.5 % (42.2-75.2); PLATELET COUNT,PLT 318 10^3/uL (150-450); RED BLOOD CELL COUNT 3.88 10^6/uL (4.6-6.2); WHITE BLOOD CELL COUNT,WBC 7.7 10^3/uL (5.0-10.0)
[2024-01-05 09:00] LABS: ANION GAP 11.2 mEq/L (7-13); CREATININE 1.34 mg/dL (0.70-1.30); EST CRCL DRUG DOSING (CG) 37.69 mL/min; POTASSIUM,K 3.2 mmol/L (3.5-5.1)
[2024-01-05] MEDS ORDERED: Non-Formulary Medication 1 Each (Tiotropium [Spiriva Handihaler] 18 MCG Kit) INH SCH (09:00)
[2024-01-05] MEDS ORDERED: METOPROLOL SUCCINATE 100 MG PO SCH (09:00)
[2024-01-05] MEDS ORDERED: Apixaban 5 MG Tab PO SCH (09:00)
[2024-01-05] MEDS ORDERED: Clopidogrel 75 MG Tab PO SCH (09:00)
[2024-01-05] MEDS ORDERED: Lisinopril 10 MG Tab PO SCH (09:00)
[2024-01-05] MEDS ORDERED: Non-Formulary Medication 1 Each (Formoterol [Perforomist] 20 MCG/2 ML Neb) NEB SCH (09:00)
[2024-01-05] MEDS ORDERED: amLODIPine 5 MG Tab PO SCH (09:00)
[2024-01-05] MEDS ORDERED: Hydrochlorothiazide 25 MG Tab PO SCH (09:00)
[2024-01-05] MEDS ORDERED: Budesonide 0.5 MG/2 ML Neb Susp NEB SCH (09:00)
[2024-01-05] MEDS ORDERED: Non-Formulary Medication 1 Each (Potassium Chloride [Potassium Chloride] 10 MEQ Cap.Er) PO SCH (09:00)
[2024-01-05] MEDS ORDERED: Gabapentin 100 MG Cap PO SCH (09:00)
[2024-01-05] MEDS ORDERED: Bumetanide 1 MG Tab PO SCH (09:00)
[2024-01-05] MEDS ORDERED: Furosemide 20 MG Tab PO SCH (09:00)
[2024-01-05] MEDS ORDERED: metFORMIN 500 MG Tab PO SCH (13:00)
[2024-01-05] MEDS ORDERED: Simvastatin 40 MG Tab PO SCH (21:00)
== END 2024-01-05 09:48 | disposition home or self-care (01) ==
LOC: DL.ED 23:22 → DL.MS 01-05 01:02 → DL.ED 01-05 01:34
PROVIDERS: ADMIT Internal Medicine; ATTEND Internal Medicine
DX: D63.8 Anemia in other chronic diseases classified elsewhere (principal); I12.9 Hypertensive chronic kidney disease with stage 1 through stage 4 chronic kidney disease, or unspecified chronic kidney disease; E11.22 Type 2 diabetes mellitus with diabetic chronic kidney disease; N18.9 Chronic kidney disease, unspecified; R42 Dizziness and giddiness; I25.10 Atherosclerotic heart disease of native coronary artery without angina pectoris; E78.5 Hyperlipidemia, unspecified; I95.9 Hypotension, unspecified; J44.9 Chronic obstructive pulmonary disease, unspecified; E66.9 Obesity, unspecified; G47.30 Sleep apnea, unspecified; E78.00 Pure hypercholesterolemia, unspecified; Z79.82 Long term (current) use of aspirin; Z79.899 Other long term (current) drug therapy; Z79.84 Long term (current) use of oral hypoglycemic drugs; Z88.5 Allergy status to narcotic agent; Z88.8 Allergy status to other drugs, medicaments and biological substances; Z68.30 Body mass index [BMI] 30.0-30.9, adult; Z87.891 Personal history of nicotine dependence
CPT/HCPCS: 36415; 36430; 80048; 85025; 86850; 86900; 86901; 86920; 86922; 99285; A9270; G0378; J7030; P9016; 99222

== ENCOUNTER 2024-01-13 13:46 | Emergency (ER) | payer MEDICARE, OTHER ==
[2024-01-13 14:29] LABS: APPEARANCE,URINE CLEAR (CLEAR); BILIRUBIN,URINE NEGATIVE (NEGATIVE); GLUCOSE,URINE NEGATIVE (NEGATIVE); KETONES,URINE NEGATIVE (NEGATIVE); LEUKOCYTE ESTERASE,URINE NEGATIVE (NEGATIVE); NITRITE,URINE NEGATIVE (NEGATIVE); OCCULT BLOOD,URINE NEGATIVE (NEGATIVE); PH,URINE 7.5 (5.0-9.0); PROTEIN,URINE NEGATIVE (NEGATIVE); UROBILINOGEN,URINE 0.2 mg/dL (0.2-1.0)
[2024-01-13] MEDS: Sodium Chloride 0.9% 10 ML Syringe FLUSH PRN (14:31)
[2024-01-13 14:32] LABS: BASOPHILS PERCENT AUTO 0.6 % (0.0-1.0); EOSINOPHILS PERCENT AUTO 0.8 % (1.0-3.0); HEMATOCRIT 29.8 % (40.0-54.0); HEMOGLOBIN 8.6 g/dL (14.0-18.0); LYMPHOCYTES PERCENT AUTO 9.7 % (20.5-50.1); MEAN CORPUSCULAR HEMOGLOBIN 22.5 pg (27.0-34.0); MEAN CORPUSCULAR HGB CONC 28.9 g/dL (33.0-35.0); MONOCYTES PERCENT AUTO 7.8 % (2-8); NEUTROPHILS PERCENT AUTO 81.1 % (42.2-75.2); PLATELET COUNT,PLT 305 10^3/uL (150-450); RED BLOOD CELL COUNT 3.82 10^6/uL (4.6-6.2); WHITE BLOOD CELL COUNT,WBC 7.1 10^3/uL (5.0-10.0)
[2024-01-13 14:36] LABS: COLOR,URINE LIGHT YELLOW (YELLOW)
[2024-01-13 14:56] LABS: LACTIC ACID 0.8 mmol/L (0.4-2.0)
[2024-01-13 14:58] LABS: INR 1.1 (0.9-1.2); PROTHROMBIN TIME 11.1 SEC (9.0-12.0); PTT,PARTIAL THROMBOPLSTIN TIME 22.6 SEC (22.0-34.0)
[2024-01-13 15:03] LABS: A/G RATIO 1.2; ALBUMIN 3.5 g/dL (3.4-5.0); ANION GAP 10.7 mEq/L (7-13); BILIRUBIN TOTAL 0.5 mg/dL (0.2-1.0); BUN/CREATININE RATIO 28.7 (No establ ref range); CALCIUM 9.1 mg/dL (8.5-10.1); CREATININE 1.22 mg/dL (0.70-1.30); EST CRCL DRUG DOSING (CG) 45.88 mL/min; MAGNESIUM 1.9 mg/dL (1.8-2.4); POTASSIUM,K 3.7 mmol/L (3.5-5.1); PROTEIN TOTAL,TP 6.3 g/dL (6.4-8.2); TSH ULTRASENSITIVE 0.35 uIU/mL (0.36-3.74)
[2024-01-13 16:12] VITALS: BP 167/55; PULSE 58
[2024-01-13] MEDS ORDERED: methylPREDNISolone Sod Succ 40 MG in Sodium Chloride 0.9% 100 ML IV ONE (16:14)
[2024-01-13] MEDS: diphenhydrAMINE 50 MG Cap PO ONE (16:27)
[2024-01-13] MEDS: methylPREDNISolone Sodium Succinate 40 MG/1 ML SDV IV ONE (16:27)
== END 2024-01-13 18:07 ==
LOC: DL.ED 13:46
DX: R55 Syncope and collapse (principal); I11.0 Hypertensive heart disease with heart failure; I50.9 Heart failure, unspecified; J44.9 Chronic obstructive pulmonary disease, unspecified; E78.00 Pure hypercholesterolemia, unspecified; K21.9 Gastro-esophageal reflux disease without esophagitis; E11.9 Type 2 diabetes mellitus without complications; I25.10 Atherosclerotic heart disease of native coronary artery without angina pectoris; Z91.041 Radiographic dye allergy status; Z88.5 Allergy status to narcotic agent; Z79.82 Long term (current) use of aspirin; Z79.899 Other long term (current) drug therapy; Z79.51 Long term (current) use of inhaled steroids; Z95.5 Presence of coronary angioplasty implant and graft; Z87.891 Personal history of nicotine dependence
CPT/HCPCS: 36415; 70450; 71045; 80053; 81003; 82272; 82550; 83605; 83735; 84443; 84484; 85025; 85379; 85610; 85730; 86850; 86900; 86901; 93005; 96374; 99285; J2919; Q0163; J3490

== ENCOUNTER 2024-01-19 17:54 | Emergency (ER) | payer MEDICARE, OTHER ==
[2024-01-19 18:21] LABS: BASOPHILS PERCENT AUTO 0.4 % (0.0-1.0); EOSINOPHILS PERCENT AUTO 0.4 % (1.0-3.0); HEMATOCRIT 32.6 % (40.0-54.0); HEMOGLOBIN 9.4 g/dL (14.0-18.0); LYMPHOCYTES PERCENT AUTO 9.1 % (20.5-50.1); MEAN CORPUSCULAR HEMOGLOBIN 22.2 pg (27.0-34.0); MEAN CORPUSCULAR HGB CONC 28.8 g/dL (33.0-35.0); MEAN CORPUSCULAR VOLUME 77.1 fL (80-100); MONOCYTES PERCENT AUTO 8.9 % (2-8); NEUTROPHILS PERCENT AUTO 81.2 % (42.2-75.2); PLATELET COUNT,PLT 351 10^3/uL (150-450); RED BLOOD CELL COUNT 4.23 10^6/uL (4.6-6.2)
[2024-01-19 18:32] VITALS: BP 118/55; PULSE 65
[2024-01-19 18:39] LABS: INR 1.1 (0.9-1.2); PTT,PARTIAL THROMBOPLSTIN TIME 22.5 SEC (22.0-34.0)
[2024-01-19 18:43] LABS: LACTIC ACID 1.6 mmol/L (0.4-2.0)
[2024-01-19 18:47] LABS: A/G RATIO 1.3; ALANINE AMINOTRANSFERASE,ALT 17 U/L (16-63); ALBUMIN 3.8 g/dL (3.4-5.0); ALKALINE PHOSPHATASE 82 U/L (46-116); ANION GAP 11.3 mEq/L (7-13); ASPARTATE AMNIOTRANSFERASE,AST 18 U/L (15-37); BILIRUBIN TOTAL 0.6 mg/dL (0.2-1.0); BLOOD UREA NITROGEN,BUN 24 mg/dL (7-18); BUN/CREATININE RATIO 14.3 (No establ ref range); CALCIUM 9.7 mg/dL (8.5-10.1); CARBON DIOXIDE,CO2 33 mmol/L (21-32); CHLORIDE,CL 95 mmol/L (98-107); CREATININE 1.68 mg/dL (0.70-1.30); EST CRCL DRUG DOSING (CG) 29.88 mL/min; GLUCOSE RANDOM 135 mg/dL (70-99); MAGNESIUM 1.7 mg/dL (1.8-2.4); POTASSIUM,K 4.3 mmol/L (3.5-5.1); PROTEIN TOTAL,TP 6.7 g/dL (6.4-8.2); SODIUM,NA 135 mmol/L (136-145)
[2024-01-19 18:48] LABS: C-REACTIVE PROTEIN < 0.50 ng/dL (<=0.50); ESTIMATED GFR 40 mL/min (>=60)
[2024-01-19 18:52] LABS: B-TYPE NATRIURETIC PEPTIDE,BNP 76 pg/ml (0-100)
[2024-01-19] MEDS: Sodium Chloride 0.9% 1,000 ML IV ONE (19:17)
[2024-01-19] MEDS: Sodium Chloride 0.9% 10 ML Syringe FLUSH PRN (19:17)
== END 2024-01-19 20:31 | disposition home or self-care (01) ==
LOC: DL.ED 17:54
DX: R53.1 Weakness (principal); J41.1 Mucopurulent chronic bronchitis; I11.0 Hypertensive heart disease with heart failure; I50.9 Heart failure, unspecified; I25.810 Atherosclerosis of coronary artery bypass graft(s) without angina pectoris; K21.9 Gastro-esophageal reflux disease without esophagitis; M19.90 Unspecified osteoarthritis, unspecified site; E78.00 Pure hypercholesterolemia, unspecified; E66.9 Obesity, unspecified; E11.9 Type 2 diabetes mellitus without complications; Z88.5 Allergy status to narcotic agent; Z88.8 Allergy status to other drugs, medicaments and biological substances; Z91.041 Radiographic dye allergy status; Z79.82 Long term (current) use of aspirin; Z79.899 Other long term (current) drug therapy; Z68.21 Body mass index [BMI] 21.0-21.9, adult
CPT/HCPCS: 36415; 71045; 80053; 82947; 83605; 83735; 83880; 84145; 84484; 85025; 85610; 85730; 86140; 93005; 96360; 99285-25; J3490; J7030

== ENCOUNTER 2024-01-30 12:57 | Inpatient (IN) | payer MEDICARE, OTHER ==
[2024-01-30] MEDS ORDERED: Sodium Chloride 0.9% 10 ML Syringe FLUSH PRN ×2 (13:29)
[2024-01-30 13:42] LABS: BASOPHILS PERCENT AUTO 0.3 % (0.0-1.0); EOSINOPHILS PERCENT AUTO 0.6 % (1.0-3.0); HEMATOCRIT 28.4 % (40.0-54.0); HEMOGLOBIN 8.1 g/dL (14.0-18.0); LYMPHOCYTES PERCENT AUTO 8.1 % (20.5-50.1); MEAN CORPUSCULAR HEMOGLOBIN 22.4 pg (27.0-34.0); MEAN CORPUSCULAR HGB CONC 28.5 g/dL (33.0-35.0); MEAN CORPUSCULAR VOLUME 78.5 fL (80-100); MONOCYTES PERCENT AUTO 6.4 % (2-8); NEUTROPHILS PERCENT AUTO 84.6 % (42.2-75.2); PLATELET COUNT,PLT 302 10^3/uL (150-450); RED BLOOD CELL COUNT 3.62 10^6/uL (4.6-6.2); WHITE BLOOD CELL COUNT,WBC 8.7 10^3/uL (5.0-10.0)
[2024-01-30 13:57] LABS: PROTHROMBIN TIME 10.8 SEC (9.0-12.0)
[2024-01-30 14:03] LABS: A/G RATIO 1.3; ALBUMIN 3.8 g/dL (3.4-5.0); ANION GAP 11.8 mEq/L (7-13); BILIRUBIN TOTAL 0.6 mg/dL (0.2-1.0); BUN/CREATININE RATIO 20.8 (No establ ref range); CALCIUM 9.7 mg/dL (8.5-10.1); CREATININE 1.25 mg/dL (0.70-1.30); EST CRCL DRUG DOSING (CG) 40.22 mL/min; POTASSIUM,K 3.8 mmol/L (3.5-5.1); PROTEIN TOTAL,TP 6.7 g/dL (6.4-8.2)
[2024-01-30] MEDS: methylPREDNISolone Sodium Succinate 125 MG/2 ML SDV IVPUSH ONE (15:19)
[2024-01-30] MEDS: Iopamidol 755 Mg/ML 100 ML Bottle IVPUSH ONE (15:23)
[2024-01-30] MEDS: diphenhydrAMINE 50 MG/ML SDV IVPUSH ONE (15:33)
[2024-01-30] MEDS ORDERED: Albuterol/Ipratropium 3.0-0.5 MG/3 ML Neb Soln NEB PRN (17:45)
[2024-01-30] MEDS ORDERED: Promethazine 25 MG/ML SDV IM PRN (17:45)
[2024-01-30] MEDS ORDERED: Magnesium Hydroxide 400 MG/5 ML Susp 30 ML Cup PO PRN (17:45)
[2024-01-30] MEDS ORDERED: Sennosides/Docusate Sodium 50-8.6 MG Tab PO PRN (17:45)
[2024-01-30] MEDS ORDERED: Acetaminophen 325 MG Tab PO PRN (17:45)
[2024-01-30] MEDS ORDERED: Polyethylene Glycol 3350 Powder 17 GM Packet PO PRN (17:45)
[2024-01-30] MEDS ORDERED: Melatonin 3 MG Tab PO PRN (17:45)
[2024-01-30] MEDS ORDERED: Ondansetron 4 MG/2 ML SDV IVPUSH PRN (17:45)
[2024-01-30] MEDS ORDERED: traMADol 50 MG Tab PO PRN (17:48)
[2024-01-30] MEDS ORDERED: guaiFENesin/Dextromethorphan 100-10 MG/5 ML Soln 5 ML Cup PO PRN ×2 (18:38→19:20)
[2024-01-30] MEDS: LORazepam 2 MG/ML SDV IVPUSH ONE ×3 (18:46→22:15)
[2024-01-30] MEDS ORDERED: Flumazenil 0.1 MG/ML 5 ML MDV IVPUSH PRN (19:04)
[2024-01-30] MEDS: Pantoprazole 40 MG Vial IVPUSH ONE (20:50)
[2024-01-30] MEDS: Sucralfate 1 GM Tab PO SCH (20:54)
[2024-01-30] MEDS: Melatonin 3 MG Tab PO PRN (20:54)
[2024-01-30] MEDS: guaiFENesin 600 MG Tab.ER PO SCH (20:54)
[2024-01-30] MEDS ORDERED: Nitroglycerin 0.4 MG Tab.SL SL PRN (21:16)
[2024-01-30] MEDS: Magnesium Sulfate/D5W 1 GM/100 ML BAG IV ONE (22:37)
[2024-01-30] MEDS: Azithromycin 500 MG in Sodium Chloride 0.9% 250 ML IV ONE (22:37)
[2024-01-30] MEDS: Arformoterol 15 MCG/2 ML Neb Soln INH SCH (22:37)
[2024-01-31] MEDS: Pantoprazole 40 MG Tab.CR PO SCH (05:54)
[2024-01-31 06:27] LABS: BASOPHILS PERCENT AUTO 0.2 % (0.0-1.0); HEMATOCRIT 29.3 % (40.0-54.0); HEMOGLOBIN 8.7 g/dL (14.0-18.0); LYMPHOCYTES PERCENT AUTO 9.6 % (20.5-50.1); MEAN CORPUSCULAR HEMOGLOBIN 23.5 pg (27.0-34.0); MEAN CORPUSCULAR HGB CONC 29.7 g/dL (33.0-35.0); MEAN CORPUSCULAR VOLUME 79.2 fL (80-100); MONOCYTES PERCENT AUTO 8.8 % (2-8); NEUTROPHILS PERCENT AUTO 81.4 % (42.2-75.2); PLATELET COUNT,PLT 380 10^3/uL (150-450)
[2024-01-31 06:41] LABS: ALBUMIN 3.3 g/dL (3.4-5.0); ANION GAP 12.5 mEq/L (7-13); BUN/CREATININE RATIO 21.2 (No establ ref range); CALCIUM 9.1 mg/dL (8.5-10.1); CREATININE 1.18 mg/dL (0.70-1.30); EST CRCL DRUG DOSING (CG) 42.8 mL/min; MAGNESIUM 2.2 mg/dL (1.8-2.4); POTASSIUM,K 3.5 mmol/L (3.5-5.1)
[2024-01-31 06:58] LABS: A/G RATIO 1.22
[2024-01-31] MEDS: Dexamethasone 4 MG Tab PO SCH (09:00)
[2024-01-31] MEDS: Bumetanide 1 MG Tab PO SCH (09:00)
[2024-01-31] MEDS: amLODIPine 5 MG Tab PO SCH (09:00)
[2024-01-31] MEDS: Loratadine 10 MG Tab PO SCH (09:00)
[2024-01-31] MEDS: Hydrochlorothiazide 25 MG Tab PO SCH (09:01)
[2024-01-31] MEDS: Lisinopril 5 MG Tab PO SCH (09:01)
[2024-01-31] MEDS: Azithromycin 500 MG in Sodium Chloride 0.9% 250 ML IV SCH (09:02)
[2024-01-31] MEDS: Sotalol 80 MG Tab PO SCH (09:02)
[2024-01-31] MEDS: Sertraline 50 MG Tab PO SCH (09:02)
[2024-01-31] MEDS: traZODone 50 MG Tab PO SCH ×2 (09:02→22:12)
[2024-01-31] MEDS: predniSONE 5 MG Tab PO SCH (09:07)
[2024-01-31] MEDS: Fluticasone NASAL Spray 16 GM Bottle NASBOTH SCH (09:08)
[2024-01-31] MEDS: Tiotropium Bromide 4 GM Inhalation Spray (2.5mcg/1 dose; 10 doses) INH SCH (11:21)
[2024-01-31] MEDS: Budesonide 0.5 MG/2 ML Neb Susp NEB SCH (11:21)
[2024-01-31] MEDS ORDERED: Acetaminophen/Butalbital/Caffeine 325-50-40 MG Tab PO PRN (19:26)
[2024-01-31] MEDS: LORazepam 2 MG/ML SDV IVPUSH PRN ×2 (20:15→23:20)
[2024-01-31 20:32] LABS: HEMATOCRIT 28.7 % (40.0-54.0); HEMOGLOBIN 8.4 g/dL (14.0-18.0)
[2024-01-31 20:56] LABS: ALBUMIN 3.2 g/dL (3.4-5.0); ANION GAP 9.6 mEq/L (7-13); BILIRUBIN TOTAL 0.5 mg/dL (0.2-1.0); BUN/CREATININE RATIO 25.4 (No establ ref range); CALCIUM 9.1 mg/dL (8.5-10.1); CREATININE 1.42 mg/dL (0.70-1.30); EST CRCL DRUG DOSING (CG) 35.57 mL/min; POTASSIUM,K 3.6 mmol/L (3.5-5.1); PROTEIN TOTAL,TP 5.8 g/dL (6.4-8.2)
[2024-01-31 21:06] LABS: A/G RATIO 1.23
[2024-01-31] MEDS ORDERED: Naloxone 2 MG/2 ML Syringe IVPUSH PRN (22:12)
[2024-01-31] MEDS: Morphine 2 MG/ML SYRINGE IVPUSH PRN (23:20)
[2024-02-01] MEDS: Dexamethasone/Neomycin/Polymyxin B Ophth Susp 5 ML Bottle EYELF SCH (00:36)
[2024-02-01] MEDS: LORazepam 2 MG/ML SDV IVPUSH PRN (13:26)
[2024-02-01] MEDS: Morphine 10 MG/ML Syringe IVPUSH PRN (14:07)
[2024-02-01] MEDS: Atropine 1% Ophth Soln 5 ML Bottle SL PRN (15:54)
[2024-02-01] MEDS: Scopalamine 1mg/3day Transdermal Patch TRDERM PRN (15:54)
[2024-02-01 21:25] VITALS: BP 159/56; PULSE 62
[2024-02-02] MEDS: Morphine 10 MG/ML Syringe IVPUSH ONE ×2 (07:33→07:53)
[2024-02-02] MEDS: Morphine 10 MG/ML Syringe IVPUSH PRN (09:44)
[2024-02-02] MEDS: SODIUM CHLORIDE 0.9% IV SCH (10:19)
[2024-02-02] MEDS: MORPHINE IV SCH (10:19)
== END 2024-02-02 22:50 | disposition expired | DRG 811 ==
LOC: DL.ED 12:57 → DL.MS 17:27
PROVIDERS: ADMIT Internal Medicine; ATTEND Internal Medicine
PROC: 30233N1 Transfusion of Nonautologous Red Blood Cells into Peripheral Vein, Percutaneous Approach (ICD-10-PCS; principal; 2024-01-30)
DX: D50.0 Iron deficiency anemia secondary to blood loss (chronic) (principal); D64.9 Anemia, unspecified; J96.21 Acute and chronic respiratory failure with hypoxia; I50.32 Chronic diastolic (congestive) heart failure; I50.9 Heart failure, unspecified; J44.1 Chronic obstructive pulmonary disease with (acute) exacerbation; J44.9 Chronic obstructive pulmonary disease, unspecified; D68.32 Hemorrhagic disorder due to extrinsic circulating anticoagulants; E11.9 Type 2 diabetes mellitus without complications; K92.1 Melena; Z51.5 Encounter for palliative care; Z66 Do not resuscitate; Z91.041 Radiographic dye allergy status; I25.10 Atherosclerotic heart disease of native coronary artery without angina pectoris; I25.2 Old myocardial infarction; I48.0 Paroxysmal atrial fibrillation; I11.0 Hypertensive heart disease with heart failure; I08.0 Rheumatic disorders of both mitral and aortic valves; Z68.21 Body mass index [BMI] 21.0-21.9, adult; I27.20 Pulmonary hypertension, unspecified; E66.9 Obesity, unspecified; M19.90 Unspecified osteoarthritis, unspecified site; K21.9 Gastro-esophageal reflux disease without esophagitis; E78.00 Pure hypercholesterolemia, unspecified; T45.515A Adverse effect of anticoagulants, initial encounter; E11.65 Type 2 diabetes mellitus with hyperglycemia; H54.7 Unspecified visual loss; R55 Syncope and collapse; F41.9 Anxiety disorder, unspecified; G47.33 Obstructive sleep apnea (adult) (pediatric); Z95.0 Presence of cardiac pacemaker; Z88.5 Allergy status to narcotic agent; Z95.1 Presence of aortocoronary bypass graft; Z88.8 Allergy status to other drugs, medicaments and biological substances; Z85.46 Personal history of malignant neoplasm of prostate; Z79.82 Long term (current) use of aspirin; Z79.01 Long term (current) use of anticoagulants; Z87.01 Personal history of pneumonia (recurrent); Z90.89 Acquired absence of other organs; Z95.5 Presence of coronary angioplasty implant and graft; Z98.49 Cataract extraction status, unspecified eye; Z74.09 Other reduced mobility; Z99.81 Dependence on supplemental oxygen; Z79.52 Long term (current) use of systemic steroids; Z79.899 Other long term (current) drug therapy; Z98.890 Other specified postprocedural states; Z97.3 Presence of spectacles and contact lenses
CPT/HCPCS: 36415; 71045; 71275; 80053; 82272; 83880; 84484; 85025; 85610; 86850; 86900; 86901; 86920; 86922; 93005; 93010; 96374; 96375; 99284; 99285; J1200; J2919; Q9967; 36430; 83735; 85014; 85018; 94010; 94640; 94667; 94760; 99223; 99233; 99238; A9270-GY; J0456; J2060; J2270; J2470; J3360; J3475; J3490; J7050; J8540; P9016